=== PATIENT | male | born 1965 | race Caucasian/White ===

== ENCOUNTER 2022-05-05 14:47 | Inpatient (IN) | payer SELFPAY ==
[2022-05-05 15:46] LABS: #Eosinphils 0.1 thou/uL (0.0-0.7); #Lymphocytes 1.5 thou/uL (1.20-3.40); #Monocytes 0.7 thou/uL (0.11-0.59); #Neutrophils 7.3 thou/uL (1.40-6.50); %Basophils 0.3 % (0.0-1.0); %Eosinophils 1.2 % (0.0-10.0); %Lymphocytes 15.5 % (21.0-51.0); %Monocytes 7.4 % (0.0-10.0); %Neutrophils 75.5 % (42.0-75.0); Hemoglobin 14.9 g/dL (14.0-18.0); Mean Corpuscular HGB CONC 33.9 g/dL (32.0-36.0); Mean Corpuscular Hemoglobin 32.2 pg (27.0-31.0); Mean Corpuscular Volume 94.9 fl (78.0-98.0); Mean Platelet Volume 8.6 fL (7.4-10.4); Platelet Count 222 10x3/uL (130-400); RBC Distribution Width 11.3 % (11.5-14.5); Red Blood Cell (RBC) Count 4.63 mill/uL (4.70-6.10); White Blood Cell (WBC) Count 9.6 10x3/uL (4.8-10.8)
[2022-05-05 15:57] LABS: ALT (SGPT) 28 U/L (8-55); AST (SGOT) 24 U/L (5-34); Albumin 3.5 g/dL (3.5-5.0); Alkaline Phosphatase 64 U/L (40-110); Anion Gap 12 mmol/L (10-20); BUN (Urea Nitrogen) 20 mg/dL (8.4-25.7); Bilirubin, Total 0.5 mg/dL (0.2-1.2); CK (CPK) 52 U/L (30-200); Calc. Creatinine Clearance 0 mL/min (70-130); Calcium 8.6 mg/dL (7.8-10.44); Carbon Dioxide 22 mmol/L (22-29); Chloride 109 mmol/L (98-107); Estimated GFR 95; Globulin 2.8 g/dL (2.4-3.5); Glucose 78 mg/dL (70-105); Protein, Total 6.3 g/dL (6.0-8.3); Sodium 139 mmol/L (136-145)
[2022-05-05] MEDS ORDERED: LORazepam 2 MG/ML SYR.(CARPUJECT) ONE (16:35)
[2022-05-05] MEDS ORDERED: Ondansetron PF 4 MG/2 ML Vial IVP PRN (20:15)
[2022-05-05] MEDS ORDERED: Ondansetron ODT 4 MG TAB PO PRN (20:15)
[2022-05-05] MEDS ORDERED: Lorazepam 2 MG/ML VIAL SLOW IVP PRN (20:15)
[2022-05-05] MEDS ORDERED: Acetaminophen 325 MG TAB PO PRN (20:15)
[2022-05-05] MEDS ORDERED: Dextrose 5% in Water 1,000 ML IV PRN (20:15)
[2022-05-05] MEDS ORDERED: Dextrose 50% Abboject 50 ML SYRINGE SLOW IVP PRN (20:15)
[2022-05-05 20:45] LABS: Magnesium 1.8 mg/dL (1.6-2.6)
[2022-05-05 20:51] LABS: Phosphorus 1.2 mg/dL (2.3-4.7)
[2022-05-05] MEDS ORDERED: Electrolyte Replacement Protocol 1 EACH FS SCH (21:00)
[2022-05-05 21:18] VITALS: BMI 23.5
[2022-05-05] MEDS ORDERED: PHOS-NAK 1 PKT PACK PO SCH (21:30)
[2022-05-05] MEDS: levETIRAcetam 500 MG TAB PO SCH (21:44)
[2022-05-05] MEDS: PHOS-NAK 1 PKT PACK PO SCH (21:45)
[2022-05-05] MEDS ORDERED: Magnesium 2 GM/50 ML(in water) 2 GM in Premix Bag 1 BAG IVPB SCH (22:00)
[2022-05-06] MEDS: PHOS-NAK 1 PKT PACK PO SCH ×3 (01:53→10:15)
[2022-05-06 05:42] LABS: Anion Gap 10 mmol/L (10-20); BUN (Urea Nitrogen) 15 mg/dL (8.4-25.7); Calc. Creatinine Clearance 93 mL/min (70-130); Calcium 8.5 mg/dL (7.8-10.44); Carbon Dioxide 25 mmol/L (22-29); Chloride 107 mmol/L (98-107); Estimated GFR 99; Glucose 107 mg/dL (70-105); Magnesium 2.3 mg/dL (1.6-2.6); Potassium 3.9 mmol/L (3.5-5.1); Sodium 138 mmol/L (136-145)
[2022-05-06 05:51] LABS: Phosphorus 3.6 mg/dL (2.3-4.7)
[2022-05-06 05:55] LABS: #Basophils 0.1 thou/uL (0.0-0.2); #Eosinphils 0.1 thou/uL (0.0-0.7); #Lymphocytes 2.2 thou/uL (1.20-3.40); #Monocytes 0.8 thou/uL (0.11-0.59); #Neutrophils 4.9 thou/uL (1.40-6.50); %Basophils 0.8 % (0.0-1.0); %Eosinophils 1.8 % (0.0-10.0); %Lymphocytes 27.3 % (21.0-51.0); %Monocytes 9.5 % (0.0-10.0); %Neutrophils 60.6 % (42.0-75.0); Hemoglobin 14.5 g/dL (14.0-18.0); Mean Corpuscular HGB CONC 34.2 g/dL (32.0-36.0); Mean Corpuscular Hemoglobin 32.7 pg (27.0-31.0); Mean Corpuscular Volume 95.7 fl (78.0-98.0); Mean Platelet Volume 8.8 fL (7.4-10.4); Platelet Count 204 10x3/uL (130-400); RBC Distribution Width 11.4 % (11.5-14.5); Red Blood Cell (RBC) Count 4.44 mill/uL (4.70-6.10); White Blood Cell (WBC) Count 8.1 10x3/uL (4.8-10.8)
[2022-05-06] MEDS ORDERED: FLU VACC QS2022-23(6MOS UP)/PF 60 MCG/0.5 ML SYRINGE IM ONE (09:00)
[2022-05-06] MEDS: Tamsulosin HCl 0.4 MG CAP PO SCH (10:08)
[2022-05-06] MEDS: levETIRAcetam 500 MG TAB PO SCH ×2 (10:08→19:53)
[2022-05-06] MEDS: FLUoxetine HCl 20 MG CAP PO SCH (10:08)
[2022-05-06] MEDS: Bupropion 150 MG SR TAB PO SCH (10:08)
[2022-05-07 05:35] LABS: #Basophils 0.1 thou/uL (0.0-0.2); #Eosinphils 0.1 thou/uL (0.0-0.7); #Monocytes 0.8 thou/uL (0.11-0.59); #Neutrophils 4.5 thou/uL (1.40-6.50); %Basophils 0.9 % (0.0-1.0); %Eosinophils 1.7 % (0.0-10.0); %Monocytes 10.7 % (0.0-10.0); %Neutrophils 59.7 % (42.0-75.0); Hemoglobin 14.9 g/dL (14.0-18.0); Mean Corpuscular HGB CONC 34.6 g/dL (32.0-36.0); Mean Corpuscular Volume 95.5 fl (78.0-98.0); Mean Platelet Volume 8.6 fL (7.4-10.4); Platelet Count 210 10x3/uL (130-400); RBC Distribution Width 11.4 % (11.5-14.5); Red Blood Cell (RBC) Count 4.52 mill/uL (4.70-6.10); White Blood Cell (WBC) Count 7.5 10x3/uL (4.8-10.8)
[2022-05-07 05:39] LABS: Anion Gap 11 mmol/L (10-20); BUN (Urea Nitrogen) 17 mg/dL (8.4-25.7); Calc. Creatinine Clearance 83 mL/min (70-130); Carbon Dioxide 24 mmol/L (22-29); Chloride 106 mmol/L (98-107); Estimated GFR 87; Glucose 91 mg/dL (70-105); Magnesium 2.1 mg/dL (1.6-2.6); Potassium 4.1 mmol/L (3.5-5.1); Sodium 137 mmol/L (136-145)
[2022-05-07] MEDS ORDERED: Ergocalciferol 1.25 MG(50,000 UNITS) CAP PO SCH (09:00)
[2022-05-07] MEDS: levETIRAcetam 500 MG TAB PO SCH (10:55)
[2022-05-07] MEDS: FLUoxetine HCl 20 MG CAP PO SCH (10:55)
[2022-05-07] MEDS: Tamsulosin HCl 0.4 MG CAP PO SCH (10:55)
[2022-05-07] MEDS: Bupropion 150 MG SR TAB PO SCH (11:02)
[2022-05-07 16:31] VITALS: BP 98/61; TEMP 97.8
== END 2022-05-07 19:35 | disposition home or self-care (01) | DRG 642 ==
LOC: ERS 14:47 → 2SW 19:26 → OBSVTOIN 05-07 10:55
PROVIDERS: ADMIT Student in an Organized Health Care Education/Training Program; ATTEND Internal Medicine
DX: E83.39 Other disorders of phosphorus metabolism (principal); R29.0 Tetany; N40.0 Benign prostatic hyperplasia without lower urinary tract symptoms; F32.A Depression, unspecified; Z79.899 Other long term (current) drug therapy; F41.9 Anxiety disorder, unspecified; Z90.49 Acquired absence of other specified parts of digestive tract
CPT/HCPCS: 36415; 70450; 71046; 80048; 80053; 82306; 82550; 83735; 84100; 84443; 85025; 95816; 95819; 95957; 96374; J2060; J3475; U0003; U0005